=== PATIENT | female | born 1965 | race Caucasian/White ===

== ENCOUNTER 2021-02-08 12:19 | Observation (INO) | payer BC, MEDICAID, SELFPAY ==
[~2021-02-08] VITALS: Ht 162.6 cm; Wt 85.7 kg
[2021-02-08 12:28] VITALS: BP_SYST 129
[2021-02-08 18:24] LABS: BASOPHILS % (AUTO) 0.1 % (0.0-2.0); EOSINOPHILS # (AUTO) 0.1 K/uL (0.0-0.4); HEMATOCRIT 38.9 % (36-48); LYMPHOCYTES # (AUTO) 0.9 K/uL (1.0-5.5); LYMPHOCYTES % (AUTO) 12.7 % (20.5-51.5); MEAN CORPUSCULAR HEMOGLOBIN 29 pg (27-31); MEAN CORPUSCULAR HGB CONC 33 % (32-36); MEAN CORPUSCULAR VOLUME 85 fL (79.0-98.0); MONOCYTES # (AUTO) 0.7 K/uL (0.0-1.0); MONOCYTES % (AUTO) 8.8 % (1.7-9.3); NEUTROPHILS # (AUTO) 5.7 K/uL (1.8-7.7); NEUTROPHILS % (AUTO) 77.4 % (40.0-70.0); PLATELET COUNT (AUTO) 189 K/uL (130-430); RED BLOOD CELL COUNT(AUTO) 4.56 MIL/uL (4.2-6.2); RED CELL DISTRIBUTION WIDTH 13.8 % (9.0-15.0); WHITE BLOOD COUNT (AUTO) 7.4 K/uL (4.8-10.8)
[2021-02-08 18:48] LABS: CALCIUM 8.9 mg/dL (8.4-11.0); CREATININE 0.68 mg/dL (0.55-1.30); POTASSIUM 3.8 mmol/L (3.5-5.1)
[2021-02-08 18:59] LABS: INR 1.1 (0.8-1.2); PROTHROMBIN TIME 11.1 SECS (9.5-12.5)
[2021-02-08 19:42] LABS: ALBUMIN 3.3 g/dL (3.4-4.8); TOTAL BILIRUBIN 0.3 mg/dL (0.0-1.0)
[2021-02-08] MEDS ORDERED: ONDANSETRON HCL 4 MG/2 ML VIAL IVP PRN (21:30)
[2021-02-08] MEDS ORDERED: HYDROcodone/ACETAMIN 5-325 MG TAB (NORCO/ VICODIN) PO PRN (21:30)
[2021-02-08] MEDS ORDERED: NALOXONE HCL 0.4 MG/ML AMP (NARCAN) IVP PRN (21:30)
[2021-02-08] MEDS ORDERED: ACETAMINOPHEN 325 MG TABLET PO PRN (21:30)
[2021-02-08] MEDS ORDERED: traMADol HCL HCL 50 MG TABLET (ULTRAM) PO PRN (21:30)
[2021-02-09] MEDS ORDERED: BACL20TA PO (08:18)
[2021-02-09] MEDS ORDERED: ESCI10TA PO (08:18)
[2021-02-09] MEDS ORDERED: LIP20 PO (08:18)
[2021-02-09 09:36] VITALS: BP_SYST 109
[2021-02-09] MEDS ORDERED: BACLOFEN 10 MG TABLET PO ONE (11:30)
[2021-02-09] MEDS ORDERED: ATORVASTATIN 20 MG TABLET PO ONE (11:30)
[2021-02-09] MEDS ORDERED: CITALOPRAM HYDROBROMIDE 20 MG TABLET PO ONE (11:45)
[2021-02-09 12:00] VITALS: BP_SYST 120
[2021-02-09 16:00] VITALS: BP_SYST 123
[2021-02-09] MEDS: BACLOFEN 10 MG TABLET PO SCH (20:41)
[2021-02-09 20:45] VITALS: BP_SYST 122
[2021-02-10 05:00] VITALS: BP_SYST 126
[2021-02-10 08:00] VITALS: BP_SYST 111
[2021-02-10] MEDS: BACLOFEN 10 MG TABLET PO SCH ×3 (08:36→23:13)
[2021-02-10] MEDS ORDERED: ATORVASTATIN 20 MG TABLET PO SCH (09:00)
[2021-02-10] MEDS ORDERED: CITALOPRAM HYDROBROMIDE 20 MG TABLET PO SCH (09:00)
[2021-02-10 15:39] VITALS: BP_SYST 112
[2021-02-10 16:32] VITALS: BP_SYST 114
[2021-02-10 17:49] VITALS: BP_SYST 115
[2021-02-10 20:00] VITALS: BP_SYST 125
== END 2021-02-10 23:38 ==
LOC: EDBD 12:19 → SED 12:19 → STU 18:22 → INTOOBSV 18:22 → SMU 02-09 08:39
PROVIDERS: ADMIT Internal Medicine; ATTEND Internal Medicine
DX: S92.335A Nondisplaced fracture of third metatarsal bone, left foot, initial encounter for closed fracture (principal); Z20.822 Contact with and (suspected) exposure to COVID-19; S92.345A Nondisplaced fracture of fourth metatarsal bone, left foot, initial encounter for closed fracture; G82.20 Paraplegia, unspecified; E03.9 Hypothyroidism, unspecified; M81.0 Age-related osteoporosis without current pathological fracture; G35 Multiple sclerosis; W01.0XXA Fall on same level from slipping, tripping and stumbling without subsequent striking against object, initial encounter; Y93.89 Activity, other specified; Y92.89 Other specified places as the place of occurrence of the external cause
CPT/HCPCS: 36415; 73630; 73700; 76376; 80053; 85025; 85610; 87426; 97163; 99285; G0378 ×2